=== PATIENT | male | born 1955 | race Caucasian/White ===

== ENCOUNTER 2021-02-14 18:27 | Emergency (ER) | payer OTHER, MEDICARE ==
[2021-02-14] MEDS ORDERED: Lidocaine 1% PF 5 ML VIAL ONE (18:54)
[2021-02-14] MEDS ORDERED: Boostrix 0.5 ML (Tdap) VIAL ONE (18:54)
[2021-02-14] MEDS ORDERED: Bacitracin 1 PK ONE (19:32)
== END 2021-02-14 19:38 | disposition home or self-care (01) ==
LOC: BURERS 18:27
DX: S61.011A Laceration without foreign body of right thumb without damage to nail, initial encounter (principal); W45.8XXA Other foreign body or object entering through skin, initial encounter
CPT/HCPCS: 12001; 90471; 90715

== ENCOUNTER 2022-02-15 08:46 | Outpatient (CLI) | payer OTHER, MEDICARE | END 2022-02-15 08:47 | disposition home or self-care (01) | LOC: BURCT 08:46 | PROVIDERS: ATTEND Family Medicine | DX: N20.0 Calculus of kidney (principal) | CPT/HCPCS: 74176 ==

== ENCOUNTER 2023-05-06 12:28 | Emergency (ER) | payer MEDICARE, OTHER, SELFPAY ==
[2023-05-06] MEDS ORDERED: Lidocaine 1% PF 5 ML VIAL ONE (12:33)
[2023-05-06] MEDS ORDERED: Bacitracin 1 PK ONE (12:42)
== END 2023-05-06 12:58 | disposition home or self-care (01) ==
LOC: BURERS 12:28
DX: S61.211A Laceration without foreign body of left index finger without damage to nail, initial encounter (principal); W31.89XA Contact with other specified machinery, initial encounter
CPT/HCPCS: 12002; 99282

== ENCOUNTER 2024-06-18 12:43 | Emergency (ER) | payer OTHER, MEDICARE ==
[2024-06-18 13:16] LABS: #Basophils 0.1 thou/uL (0.0-0.2); #Eosinophils 0.2 thou/uL (0.0-0.7); #Lymphocytes 1.6 thou/uL (1.20-3.40); #Monocytes 0.5 thou/uL (0.11-0.59); #Neutrophils 2.6 thou/uL (1.40-6.50); %Basophils 1.5 % (0.0-1.0); %Eosinophils 4.5 % (0.0-10.0); %Lymphocytes 31.5 % (21.0-51.0); %Monocytes 10.1 % (0.0-10.0); %Neutrophils 52.4 % (42.0-75.0); Hematocrit 37.9 % (42.0-52.0); MDiff Complete? YES; Mean Corpuscular Hemoglobin 32.6 pg (27.0-31.0); Mean Corpuscular Volume 88.3 fl (78.0-98.0); Mean Platelet Volume 6.3 fL (7.4-10.4); Platelet Count 279 10x3/uL (130-400); RBC Distribution Width 10.7 % (11.5-14.5); Red Blood Cell (RBC) Count 4.29 mill/uL (4.70-6.10); White Blood Cell (WBC) Count 4.9 10x3/uL (4.8-10.8)
[2024-06-18] MEDS ORDERED: Aspirin 325 MG TAB ONE (13:18)
[2024-06-18] MEDS ORDERED: Famotidine 20 MG TAB ONE (13:18)
[2024-06-18] MEDS ORDERED: Meclizine HCl 25 MG TAB ONE (13:18)
[2024-06-18 13:31] LABS: ALT (SGPT) 44 U/L (Less than 45); AST (SGOT) 40 U/L (11-34); Albumin 4.2 g/dL (3.1-4.5); Alkaline Phosphatase 70 U/L (40-110); Anion Gap 15 mmol/L (10-20); BUN (Urea Nitrogen) 17 mg/dL (8.4-25.7); Bilirubin, Total 0.5 mg/dL (0.3-1.2); Calc. Creatinine Clearance 0 mL/min (70-130); Calcium 9.4 mg/dL (7.8-10.44); Carbon Dioxide 19 mmol/L (23-31); Chloride 107 mmol/L (98-107); Estimated GFR 89; Globulin 3.2 g/dL (2.4-3.5); Glucose 120 mg/dL (80-115); Lipase 36 U/L (8-78); Potassium 4.2 mmol/L (3.5-5.1); Protein, Total 7.4 g/dL (5.8-8.1); Sodium 137 mmol/L (136-145); Troponin I Less than 0.010 ng/mL (< 0.028)
== END 2024-06-18 13:59 | disposition left against medical advice (07) ==
LOC: BURERS 12:43
DX: R10.13 Epigastric pain (principal); R07.9 Chest pain, unspecified; R61 Generalized hyperhidrosis
CPT/HCPCS: 70450; 71046; 80053; 83605; 83690; 84484; 85025; 93005

== ENCOUNTER 2025-01-15 15:57 | Emergency (ER) | payer MEDICARE, OTHER ==
[~2025-01-15 15:57] MED LIST: Iopamidol 370 76% 100 ML VIAL ONE
[2025-01-15] MEDS ORDERED: Mag-Al Plus 1200/1200/120 MG (30 mL) UDCUP ONE (16:25)
[2025-01-15] MEDS ORDERED: Lidocaine Viscous Sol 2% 15 ml UD Cup ONE (16:25)
[2025-01-15] MEDS ORDERED: Aspirin Chewable 81 MG TAB ONE (16:25)
[2025-01-15 16:39] LABS: ALT (SGPT) 83 U/L (Less than 45); AST (SGOT) 171 U/L (11-34); Albumin 4.3 g/dL (3.1-4.5); Alkaline Phosphatase 79 U/L (40-110); Anion Gap 19 mmol/L (10-20); BUN (Urea Nitrogen) 20 mg/dL (8.4-25.7); Bilirubin, Total 0.6 mg/dL (0.3-1.2); Calc. Creatinine Clearance 0 mL/min (70-130); Calcium 9.7 mg/dL (7.8-10.44); Carbon Dioxide 19 mmol/L (23-31); Chloride 107 mmol/L (98-107); Globulin 3.0 g/dL (2.4-3.5); Glucose 118 mg/dL (80-115); Lipase 40 U/L (8-78); Magnesium 2.0 mg/dL (1.6-2.6); Potassium 3.9 mmol/L (3.5-5.1); Sodium 141 mmol/L (136-145); Troponin I Less than 0.010 ng/mL (< 0.028)
[2025-01-15 17:03] LABS: Hematocrit 36.8 % (42.0-52.0); Hemoglobin 14.7 g/dL (14.0-18.0); Mean Corpuscular Hemoglobin 33.8 pg (27.0-31.0); Mean Corpuscular Volume 84.6 fl (78.0-98.0); Platelet Count 290 10x3/uL (130-400); Red Blood Cell (RBC) Count 4.35 mill/uL (4.70-6.10); White Blood Cell (WBC) Count 8.2 10x3/uL (4.8-10.8)
[2025-01-15 17:11] LABS: MDiff Complete? YES; Platelet Adequacy Comment Appears Adequate
[2025-01-15 17:16] LABS: Cocaine Metabolite Screen Negative (Negative); THC/Cannabinoid Screen Negative (Negative); Tricyclic Screen Negative (Negative)
== END 2025-01-15 18:55 | disposition home or self-care (01) ==
LOC: BURERS 15:57
DX: K29.00 Acute gastritis without bleeding (principal); K21.9 Gastro-esophageal reflux disease without esophagitis
CPT/HCPCS: 71045; 71275; 74177; 80053; 80306; 83605; 83690; 83735; 83880; 84484; 85025; 85379; 93005; J2919; 96361; 96374; Q9967